=== PATIENT | female | born 1965 | race Caucasian/White ===

== ENCOUNTER → 2017-07-25 | Emergency (ER) | payer OTHER ==
[~2017-07-25] VITALS: Ht 167.6 cm; Wt 77.1 kg
[~2017-07-25] MED LIST: ACIDOPHILUS1 EAC3 PO; COZAAR25 MG PO; FIORICET 50-321 EACH PO; IBUPROFEN800 MG PO; KETO10TA2 PO; LEVAQUIN750 MG PO; MEDROLPACK PO; ORPH100T PO; PROTONIX40 MG PO; PROVENTIL3 ML/2.5 M IH; TUSSIONEX PENNKI5 ML PO; ZANTAC150 MG PO
== END | disposition home or self-care (01) ==
LOC: ER 09:03
DX: R13.19 Other dysphagia (principal)

== ENCOUNTER 2018-02-21 03:36 | Emergency (ER) | payer OTHER ==
[~2018-02-21] VITALS: Ht 167.6 cm; Wt 79.4 kg
[2018-02-21] MEDS ORDERED: COZAAR50 MG (03:42)
[2018-02-21] MEDS ORDERED: NORFLEX100MG PO (06:11)
[2018-02-21] MEDS ORDERED: VOLTAREN-XR100 MG PO (06:11)
== END 2018-02-21 06:15 | disposition home or self-care (01) ==
LOC: ER 03:36
DX: M62.838 Other muscle spasm (principal); I10 Essential (primary) hypertension

== ENCOUNTER 2018-04-10 15:32 | Emergency (ER) | payer OTHER ==
[~2018-04-10] VITALS: Ht 167.6 cm; Wt 79.4 kg
[~2018-04-10 15:32] MED LIST changes: +COZAAR50 MG; +NORFLEX100MG PO; +VOLTAREN-XR100 MG PO
[2018-04-10] MEDS ORDERED: COZAAR100 MG (15:44)
== END 2018-04-10 23:29 | disposition home or self-care (01) ==
LOC: ER 15:32 → CPU-OBS 15:36 → ER 15:36
DX: R07.89 Other chest pain (principal)
CPT/HCPCS: G0378; G0379; 93005; 82805; 36600

== ENCOUNTER 2020-10-21 14:49 | Emergency (ER) | payer OTHER ==
[~2020-10-21] VITALS: Ht 167.6 cm; Wt 79.4 kg
[~2020-10-21 14:49] MED LIST changes: +COZAAR100 MG
[2020-10-21] MEDS ORDERED: TOPROL XL25 M1 PO (14:54)
== END 2020-10-21 18:08 | disposition home or self-care (01) ==
LOC: ER 14:49
DX: R10.31 Right lower quadrant pain (principal)

== ENCOUNTER 2020-10-26 21:19 | Emergency (ER) | payer OTHER ==
[~2020-10-26] VITALS: Ht 167.6 cm; Wt 83.9 kg
[~2020-10-26 21:19] MED LIST changes: +TOPROL XL25 M1 PO
[2020-10-27] MEDS ORDERED: DOLOGESIC 500-1 EACH PO (03:20)
== END 2020-10-27 03:49 | disposition home or self-care (01) ==
LOC: ER 21:19
DX: N39.0 Urinary tract infection, site not specified (principal); Z11.52 Encounter for screening for COVID-19

== ENCOUNTER 2020-12-08 18:07 | Emergency (ER) | payer OTHER ==
[~2020-12-08] VITALS: Ht 167.6 cm; Wt 81.6 kg
[~2020-12-08 18:07] MED LIST changes: +DOLOGESIC 500-1 EACH PO
== END 2020-12-08 19:19 | disposition home or self-care (01) ==
LOC: ER 18:07
DX: M94.0 Chondrocostal junction syndrome [Tietze] (principal)

== ENCOUNTER → 2021-05-17 | Emergency (ER) | payer OTHER ==
[~2021-05-17] VITALS: Ht 167.6 cm; Wt 81.6 kg
== END | disposition home or self-care (01) ==
LOC: ER 23:14
DX: T78.40XA Allergy, unspecified, initial encounter (principal); T38.0X5A Adverse effect of glucocorticoids and synthetic analogues, initial encounter; Y92.89 Other specified places as the place of occurrence of the external cause

== ENCOUNTER → 2021-06-08 | Outpatient (CLI) | payer OTHER ==
[~2021-06-08] MED LIST changes: +NORVASC2.5 M1
== END | disposition home or self-care (01) ==
LOC: PPH VACUNA 08:00
PROVIDERS: ATTEND Emergency Medicine Pediatric Emergency Medicine
DX: Z23 Encounter for immunization (principal)

== ENCOUNTER 2021-07-15 20:36 | Emergency (ER) | payer OTHER ==
[~2021-07-15] VITALS: Ht 167.6 cm; Wt 79.4 kg
[~2021-07-15 20:36] MED LIST changes: -NORVASC2.5 M1
[2021-07-15] MEDS ORDERED: NORVASC2.5 M1 (20:39)
== END 2021-07-15 21:34 | disposition home or self-care (01) ==
LOC: ER 20:36
DX: T78.40XA Allergy, unspecified, initial encounter (principal); R60.0 Localized edema; R21 Rash and other nonspecific skin eruption; X58.XXXA Exposure to other specified factors, initial encounter

== ENCOUNTER 2022-01-19 13:28 | Emergency (ER) | payer OTHER ==
[~2022-01-19] VITALS: Ht 167.6 cm; Wt 81.6 kg
[~2022-01-19 13:28] MED LIST changes: +NORVASC2.5 M1
== END 2022-01-19 17:36 | disposition home or self-care (01) ==
LOC: ER 13:28
DX: R51.9 Headache, unspecified (principal); Z20.822 Contact with and (suspected) exposure to COVID-19